=== PATIENT | female | born 1960 | race Hispanic/Latino ===

== ENCOUNTER 2018-06-17 14:44 | Emergency (ER) | payer OTHER ==
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
--- NOTE | 2018-06-17 15:56 | Cat Scan Report ---
PROCEDURE: CT HEAD/BRAIN WO CON TECHNIQUE: Spiral imaging of the brain was obtained without IV contrast. HISTORY: headache/neck pain COMPARISONS: None FINDINGS: Brain: Brain density appears normal. No evidence of intracranial hemorrhage. No parenchymal hemorr kaci, mass lesions or mass effect are seen. No abnormal extra-axial fluid collects or masses are see n. Ventricles: Ventricles are normal size and are midline. Bone Windows: No evidence of skull fracture. The medial wall the right orbit is displaced slightly me dially. There is no edema. I suspect this is related to old trauma. Correlation with clinical present ation and physical exam is recommended. Paranasal sinuses: Visualized portions are clear.. Mastoid air cells: Clear. IMPRESSION: Mild deformity medial wall right orbit as described above. No acute or focal intracranial abnormalities are identified. FINDINGS: IMPRESSION: . This document is electronically signed by Amrit Holcomb MD., June 17 2018 03:53:56 PM ET
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
--- NOTE | 2018-06-17 16:45 | Cat Scan Report ---
PROCEDURE: CT cervical spine without contrast. TECHNIQUE: Computerized tomography of the cervical spine was performed from the skull base to T1 wit hout contrast material. CT DOSE LENGTH PRODUCT: 621.43 mGycm HISTORY: headache/neck pain COMPARISONS: None . FINDINGS: The cervical vertebrae have normal height and alignment. There are no fractures. There is no subluxat ion. The disc spaces appear satisfactory. There are small vertebral body osteophytes at C5-C6. The sp inal canal is widely patent. The facet joints appear satisfactory. The neural foramina are widely pat ent. The prevertebral soft tissues have normal thickness. IMPRESSION: No significant abnormality. This document is electronically signed by Jesus Yarbrough MD., June 17 2018 04:42:40 PM ET
[2018-06-17] MEDS ORDERED: DECADRON IM ONE (16:53)
[2018-06-17] MEDS ORDERED: FLEXERIL PO ONE (16:53)
[2018-06-17] MEDS ORDERED: NORCO 5/325 PO ONE (16:54)
[2018-06-17 17:23] VITALS: BP 156/76
== END 2018-06-17 17:23 | disposition left against medical advice (07) ==
LOC: ED 14:44
DX: S00.93XA Contusion of unspecified part of head, initial encounter (principal); M54.2 Cervicalgia; Z90.710 Acquired absence of both cervix and uterus; Z88.1 Allergy status to other antibiotic agents; Z88.8 Allergy status to other drugs, medicaments and biological substances; W22.8XXA Striking against or struck by other objects, initial encounter; Y93.89 Activity, other specified; Y92.89 Other specified places as the place of occurrence of the external cause; Y99.8 Other external cause status
CPT/HCPCS: 70450; 72125; 99283; J1100